=== PATIENT | male | born 1935 | race Caucasian/White ===

== ENCOUNTER 2021-03-07 12:32 | Observation (INO) | payer OTHER ==
[~2021-03-07] VITALS: Ht 170.2 cm; Wt 70.4 kg
[2021-03-07 13:44] LABS: HEMOGLOBIN 13.8 gm/dl (14.0-17.5); RED BLOOD COUNT 4.82 M/UL (4.20-5.50); WHITE BLOOD COUNT 8.6 K/UL (4.5-11.0)
[2021-03-07 14:23] LABS: BUN/CREATININE RATIO 20 (0-10)
[2021-03-07 20:26] LABS: BUN/CREATININE RATIO 20 (0-10)
[2021-03-07] MEDS ORDERED: HYZAAR 100-251 EACH PO (20:56)
[2021-03-07] MEDS ORDERED: ALBUTEROL2.5 MG/3 M INH (20:57)
[2021-03-07] MEDS ORDERED: AUGMENTIN 875-1 EACH PO (20:57)
[2021-03-07] MEDS ORDERED: MUCINEX600 MG PO (20:57)
[2021-03-07] MEDS ORDERED: MULTIVITAMINS1 EAC2 PO (21:02)
[2021-03-07] MEDS ORDERED: SINGULAIR10 MG PO (21:05)
[2021-03-07] MEDS ORDERED: PROSTATE HEALT1 EACH PO (21:05)
[2021-03-07] MEDS ORDERED: TESSALON PERLE100 MG PO (21:06)
[2021-03-08 04:32] LABS: HEMOGLOBIN 13.2 gm/dl (14.0-17.5); RED BLOOD COUNT 4.77 M/UL (4.20-5.50)
[2021-03-08 04:57] LABS: BUN/CREATININE RATIO 22 (0-10)
[2021-03-08] MEDS ORDERED: PROAIR HFA8.5 GM INH (08:44)
[2021-03-08] MEDS ORDERED: TOPROL XL50 MG PO (11:51)
--- NOTE | 2021-03-08 17:10 | NUR ---
PATIENT HAS HAD PERIODS OF TACHYCARDIA. PROVIDER AWARE. RECORDS FROM PATIENTS PCP HAVE BEEN REQUESTED TO SEE IF PATIENT HAS HISTORY OF AFIB. PCP COMPUTERS WERE DOWN AND THE RECORDS COULD NOT BE OBTAINED. THEY ARE ON TO BE SENT TOMORROW REPORTED BY [employer] REP. PHONE CALL WAS MADE TO PROVIDER TO GIVE STATUS UPDATE OF RECORDS, BUT PROVIDER COULD NOT BE REACHED AT THIS TIME.
--- NOTE | 2021-03-08 17:16 | NUR ---
PATIENT HAS PERIODS OF TACYCARDIA UPON EXERTION. PHYSICIAN IS AWARE AND HAD BEEN UPDATED TO PATIENTS STATUS. WILL CONTINUE TO MONITOR.
[2021-03-08] MEDS ORDERED: NORVASC5 MG PO (20:55)
[2021-03-08] MEDS ORDERED: PROTONIX 40 MG40 M1 PO (20:56)
[2021-03-09 04:26] LABS: HEMOGLOBIN 12.7 gm/dl (14.0-17.5); RED BLOOD COUNT 4.47 M/UL (4.20-5.50)
[2021-03-09 04:29] LABS: WHITE BLOOD COUNT 13.5 K/UL (4.5-11.0)
[2021-03-09 04:54] LABS: BUN/CREATININE RATIO 24 (0-10)
[2021-03-10 06:29] LABS: HEMOGLOBIN 14.3 gm/dl (14.0-17.5); WHITE BLOOD COUNT 13.2 K/UL (4.5-11.0)
[2021-03-10 06:33] LABS: RED BLOOD COUNT 4.96 M/UL (4.20-5.50)
[2021-03-10 06:55] LABS: BUN/CREATININE RATIO 27 (0-10)
[2021-03-10] MEDS ORDERED: METOPROLOL SUC100 MG PO (10:30)
[2021-03-10] MEDS ORDERED: COZAAR 50MG TAB50 MG PO (13:05)
[2021-03-10] MEDS ORDERED: ADVAIR 250-501 EACH INH (13:05)
== END 2021-03-10 15:46 | disposition home or self-care (01) ==
LOC: ER1 12:32 → CDU 16:08 → M/S 16:08
PROVIDERS: Physician Assistant Medical; Student in an Organized Health Care Education/Training Program; ADMIT Internal Medicine
DX: J44.1 Chronic obstructive pulmonary disease with (acute) exacerbation (principal); J44.0 Chronic obstructive pulmonary disease with (acute) lower respiratory infection; I25.10 Atherosclerotic heart disease of native coronary artery without angina pectoris; I10 Essential (primary) hypertension; I73.9 Peripheral vascular disease, unspecified; I49.8 Other specified cardiac arrhythmias; E22.2 Syndrome of inappropriate secretion of antidiuretic hormone; K57.30 Diverticulosis of large intestine without perforation or abscess without bleeding; K21.9 Gastro-esophageal reflux disease without esophagitis; N40.0 Benign prostatic hyperplasia without lower urinary tract symptoms; F17.210 Nicotine dependence, cigarettes, uncomplicated; R00.0 Tachycardia, unspecified; Z86.79 Personal history of other diseases of the circulatory system; Z98.890 Other specified postprocedural states; Z20.822 Contact with and (suspected) exposure to COVID-19; Z79.899 Other long term (current) drug therapy
CPT/HCPCS: 0240U; 36415; 36600; 71046; 71250; 80048; 80053; 82436; 82533; 82550; 82553; 82803; 83605; 83735; 83874; 83880; 83930; 83935; 84133; 84300; 84439; 84443; 84484; 85025; 85027; 85379; 93005; 94640; 94664; 94760; 96372; 96374; 96375; 96376; 97110-GP-CQ; 97116-GP-CQ; 97161; 99285; G0378; J0360; J0696; J1650; J2930; J7030

== ENCOUNTER 2022-05-10 11:01 | Inpatient (IN) | payer OTHER ==
[~2022-05-10] VITALS: Ht 170 cm; Wt 68.5 kg
[~2022-05-10 11:01] MED LIST: ADVAIR 250-501 EACH INH; ALBUTEROL2.5 MG/3 M INH; AUGMENTIN 875-1 EACH PO; COZAAR 50MG TAB50 MG PO; HYZAAR 100-251 EACH PO; METOPROLOL SUC100 MG PO; MUCINEX600 MG PO; MULTIVITAMINS1 EAC2 PO; NORVASC5 MG PO; PROAIR HFA8.5 GM INH; PROSTATE HEALT1 EACH PO; PROTONIX 40 MG40 M1 PO; SINGULAIR10 MG PO; TESSALON PERLE100 MG PO; TOPROL XL50 MG PO
[2022-05-10 11:55] LABS: HEMOGLOBIN 11.4 gm/dl (14.0-17.5); RED BLOOD COUNT 4.2 M/UL (4.20-5.50); WHITE BLOOD COUNT 8.3 K/UL (4.5-11.0)
[2022-05-10 12:19] LABS: BUN/CREATININE RATIO 33 (0-10)
[2022-05-10] MEDS ORDERED: LOSARTAN-HCTZ1 EAC1 PO (15:02)
[2022-05-10] MEDS ORDERED: METOPROLOL SUCC50 MG PO (15:03)
[2022-05-11 01:21] LABS: HEMOGLOBIN 10.6 gm/dl (14.0-17.5); RED BLOOD COUNT 3.87 M/UL (4.20-5.50); WHITE BLOOD COUNT 7.3 K/UL (4.5-11.0)
[2022-05-11 01:44] LABS: BUN/CREATININE RATIO 29 (0-10)
[2022-05-12 03:04] LABS: HEMOGLOBIN 10.6 gm/dl (14.0-17.5); RED BLOOD COUNT 3.89 M/UL (4.20-5.50); WHITE BLOOD COUNT 7.9 K/UL (4.5-11.0)
[2022-05-12 03:21] LABS: BUN/CREATININE RATIO 28 (0-10)
[2022-05-13 03:40] LABS: HEMOGLOBIN 11.1 gm/dl (14.0-17.5); RED BLOOD COUNT 4.07 M/UL (4.20-5.50); WHITE BLOOD COUNT 6.4 K/UL (4.5-11.0)
[2022-05-13 04:06] LABS: BUN/CREATININE RATIO 35 (0-10)
[2022-05-14 03:36] LABS: BUN/CREATININE RATIO 28 (0-10)
[2022-05-15 04:22] LABS: BUN/CREATININE RATIO 26 (0-10)
[2022-05-17 03:47] LABS: BUN/CREATININE RATIO 34 (0-10)
[2022-05-18 02:55] LABS: BUN/CREATININE RATIO 36 (0-10)
[2022-05-19 03:07] LABS: BUN/CREATININE RATIO 29 (0-10)
[2022-05-19] MEDS ORDERED: LISINOPRIL5 MG PO (12:21)
[2022-05-19] MEDS ORDERED: FLOMAX 0.4 MG0.4 MG PO (12:21)
[2022-05-19] MEDS ORDERED: LASIX20 MG PO (12:21)
[2022-05-19] MEDS ORDERED: ATORVASTATIN CA10 MG PO (12:21)
[2022-05-19] MEDS ORDERED: ASPIRIN EC81 MG PO (12:21)
== END 2022-05-20 11:23 | disposition home or self-care (01) | DRG 291 ==
LOC: ER1 11:01 → CDU 14:09 → M/S 18:33
PROVIDERS: Internal Medicine; Physician Assistant; ADMIT Internal Medicine Infectious Disease
PROC: B24BZZZ Ultrasonography of Heart with Aorta (ICD-10-PCS; principal; 2022-05-11)
DX: I11.0 Hypertensive heart disease with heart failure (principal); I50.43 Acute on chronic combined systolic (congestive) and diastolic (congestive) heart failure; J96.21 Acute and chronic respiratory failure with hypoxia; Z20.822 Contact with and (suspected) exposure to COVID-19; E87.2 Acidosis; E87.1 Hypo-osmolality and hyponatremia; E44.0 Moderate protein-calorie malnutrition; E87.3 Alkalosis; E78.5 Hyperlipidemia, unspecified; E87.6 Hypokalemia; I48.0 Paroxysmal atrial fibrillation; E88.09 Other disorders of plasma-protein metabolism, not elsewhere classified; I08.2 Rheumatic disorders of both aortic and tricuspid valves; I42.9 Cardiomyopathy, unspecified; R13.10 Dysphagia, unspecified; J44.9 Chronic obstructive pulmonary disease, unspecified; Z79.01 Long term (current) use of anticoagulants; Z79.82 Long term (current) use of aspirin; Z87.891 Personal history of nicotine dependence; Z99.81 Dependence on supplemental oxygen; Z87.11 Personal history of peptic ulcer disease; R53.81 Other malaise; Z98.890 Other specified postprocedural states; Z90.49 Acquired absence of other specified parts of digestive tract; Z83.3 Family history of diabetes mellitus; Z88.7 Allergy status to serum and vaccine; Z68.23 Body mass index [BMI] 23.0-23.9, adult
CPT/HCPCS: ECHO; 36415; 71045; 80048; 80053; 80061; 82550; 82553; 83735; 83880; 84100; 84439; 84443; 84484; 85025; 85610; 85730; 92526; 92610; 93005; 93306; 93925; 94640; 94760; 96374; 96376; 97116; 97116-GP-CQ; 97161; 97530-GP-CQ; 99285; G0378; J1160; J1650; J1940